=== PATIENT | female | born 1980 | race African-American/Black ===

== ENCOUNTER 2017-08-25 10:19 | Inpatient (IN) | payer SELFPAY ==
[~2017-08-25] VITALS: Ht 157.5 cm; Wt 93.4 kg
[2017-08-25] VITALS (15 sets, daily range): BP systolic 89–134; BP diastolic 47–92
[2017-08-25] MEDS ORDERED: INSU100I24 SQ (10:40)
[2017-08-25] MEDS ORDERED: PNV1TABL76 PO (10:40)
[2017-08-25] MEDS ORDERED: ONDANSETRON HCL 4MG/2ML VIAL IV STA (11:04)
[2017-08-25] MEDS ORDERED: LIDOCAINE HCL/PF 1% 2ML VIAL ONE (11:04)
[2017-08-25] MEDS ORDERED: SODIUM CHLORIDE 0.9% 1,000 ML IV ONE ×3 (11:04→13:00)
[2017-08-25 11:28] LABS: BG BASE EXCESS -20.7 mmol/L (-2.0-2.0); BG CARBOXYHEMOGLOBIN 0.2 % (0.5-1.5); BG DEOXYHEMOGLOBIN 1.6 % (0.0-5.0); BG HCO3 ACT 3.9 mmol/L (22.0-26.0); BG METHEMOGLOBIN 0.3 % (0.0-1.5); BG OXYGEN SATURATION 98.4 % (92.0-98.5); BG OXYHEMOGLOBIN 97.9 % (94.0-97.0); BG PCO2 9.6 mmHg (35.0-45.0); BG PH 7.227 (7.350-7.450); BG PO2 126.7 mmHg (75.0-100.0); BG SAMPLE SITE RIGHT RADIAL; BG TOTAL HEMOGLOBIN 13.6 g/dL (12.0-18.0); BG VENT MODE ROOM AIR
[2017-08-25 12:04] LABS: CLARITY URINE CLEAR (CLEAR); COLOR URINE YELLOW (YELLOW); KETONES URINE 4+ (NEGATIVE); LEUKOCYTE ESTERASE URINE TRACE (NEGATIVE); NITRITE URINE NEGATIVE (NEGATIVE); OCCULT BLOOD URINE TRACE (NEGATIVE); PH URINE 5.5 (4.5-8.0); PROTEIN URINE 1+ (NEGATIVE); SPECIFIC GRAVITY URINE 1.031 (1.005-1.030); UROBILINOGEN URINE 0.2 E.U./dL (0.2-1.0)
[2017-08-25 12:06] LABS: AMYLASE 58 IU/L (25-115); BETA HYDROXYBUTYRATE 6.7 mMol/L (0.0-0.3); CHLORIDE 98 mEq/L (98-107); TROPONIN I < 0.02 ng/mL (0.00-0.04)
[2017-08-25 12:08] LABS: BASOPHILS % 0.5 % (0.0-2.0); EOSINOPHILS % 0.1 % (0.0-5.0); HEMATOCRIT. 41.2 % (36.0-48.0); HEMOGLOBIN. 13.2 g/dL (12.0-16.0); LYMPHOCYTES % 13.4 % (20.0-50.0); MEAN CORPUSCULAR HEMOGLOBIN 27.2 pg (28.0-32.0); MEAN CORPUSCULAR VOLUME 84.5 fL (81.0-99.0); MONOCYTES % 5.7 % (2.0-8.0); NEUTROPHILS % 80.3 % (40.0-76.0); PLATELET 274 x1000/uL (130-400); RED BLOOD CELL COUNT 4.88 mill/uL (4.2-5.4); RED CELL DISTRIBUTION WIDTH 15.2 % (11.6-14.6)
[2017-08-25] MEDS ORDERED: INSULIN REGULAR (DRIP) 100 UNITS in SODIUM CHLORIDE 0.9% 100 ML IV ONE (12:12)
[2017-08-25] MEDS ORDERED: INSULIN REGULAR (DRIP) 100 UNITS in SODIUM CHLORIDE 0.9% 99 ML IV ONE (12:18)
[2017-08-25 12:42] LABS: PHOSPHORUS 3.5 mg/dL (2.5-4.9)
[2017-08-25] MEDS ORDERED: SODIUM CHLORIDE 0.9% 1,000 ML IV SCH (14:35)
[2017-08-25] MEDS ORDERED: CLONIDINE 0.1MG TABLET PO PRN (14:45)
[2017-08-25] MEDS ORDERED: ONDANSETRON HCL 4MG/2ML VIAL IV PRN (14:45)
[2017-08-25] MEDS ORDERED: DEXTROSE 50% WATER 50ML SYRINGE IV PRN ×2 (14:45)
[2017-08-25] MEDS ORDERED: ACETAMINOPHEN 325MG TABLET PO PRN (14:45)
[2017-08-25] MEDS: BLOOD SUGAR DIAGNOSTIC STRIP TEST SCH ×5 (15:00→23:16)
[2017-08-25] MEDS: DEXT 5%/0.9% NACL 1,000 ML IV SCH ×2 (16:00→22:17)
[2017-08-25] MEDS ORDERED: INSULIN REGULAR (DRIP) 100 UNITS in SODIUM CHLORIDE 0.9% 100 ML IV SCH (17:00)
[2017-08-25 20:24] LABS: CHLORIDE 109 mEq/L (98-107)
[2017-08-25 20:34] LABS: BETA HYDROXYBUTYRATE 3.8 mMol/L (0.0-0.3)
[2017-08-25] MEDS ORDERED: POTASSIUM CHLORIDE 20MEQ TABLET SR PO NR (21:00)
[2017-08-26] VITALS (30 sets, daily range): BP systolic 64–118; BP diastolic 23–68
[2017-08-26] MEDS: BLOOD SUGAR DIAGNOSTIC STRIP TEST SCH ×16 (00:05→20:37)
[2017-08-26] MEDS: DEXT 5%/0.9% NACL 1,000 ML IV SCH (00:56)
[2017-08-26 01:29] LABS: CHLORIDE 113 mEq/L (98-107)
[2017-08-26] MEDS ORDERED: POTASSIUM CHLORIDE 20MEQ TABLET SR PO NR ×2 (01:45→07:00)
[2017-08-26 05:58] LABS: BASOPHILS % 0.3 % (0.0-2.0); EOSINOPHILS % 1.6 % (0.0-5.0); HEMATOCRIT. 29.4 % (36.0-48.0); MEAN CORPUSCULAR VOLUME 82.5 fL (81.0-99.0); MEAN PLATELET VOLUME 9.5 fl (7.4-10.4); MONOCYTES % 9.6 % (2.0-8.0); NEUTROPHILS % 68.5 % (40.0-76.0); PLATELET 205 x1000/uL (130-400); RED BLOOD CELL COUNT 3.56 mill/uL (4.2-5.4); RED CELL DISTRIBUTION WIDTH 14.2 % (11.6-14.6)
[2017-08-26 06:20] LABS: BETA HYDROXYBUTYRATE 0.4 mMol/L (0.0-0.3); CHLORIDE 116 mEq/L (98-107)
[2017-08-26] MEDS: SODIUM CHLORIDE 0.9% 1,000 ML IV SCH ×2 (11:29→19:30)
[2017-08-26 12:55] LABS: BETA HYDROXYBUTYRATE 0.9 mMol/L (0.0-0.3); CHLORIDE 115 mEq/L (98-107)
[2017-08-26] MEDS ORDERED: SODIUM CHLORIDE 0.9% IV SCH (13:00)
[2017-08-26] MEDS ORDERED: INSULIN REGULAR IV SCH (13:00)
[2017-08-26] MEDS ORDERED: POTASSIUM CHLORIDE 20MEQ TABLET SR PO SCH (13:15)
[2017-08-26] MEDS ORDERED: DEXTROSE 50% WATER 50ML SYRINGE IV PRN (13:15)
[2017-08-26] MEDS: INSULIN GLARGINE UD 100 UNITS/ML SYR SUBCUT SCH (15:42)
[2017-08-26] MEDS: INSULIN LISPRO 100 UNITS/ML SUBCUT SCH ×2 (17:42→20:41)
[2017-08-27] MEDS: SODIUM CHLORIDE 0.9% 1,000 ML IV SCH ×3 (02:58→21:31)
[2017-08-27] MEDS: BLOOD SUGAR DIAGNOSTIC STRIP TEST SCH ×4 (07:00→21:30)
[2017-08-27 07:11] VITALS: BP 94/57
[2017-08-27 08:00] VITALS: BP 80/37
[2017-08-27] MEDS: INSULIN LISPRO 100 UNITS/ML SUBCUT SCH ×4 (08:42→21:29)
[2017-08-27] MEDS: INSULIN GLARGINE UD 100 UNITS/ML SYR SUBCUT SCH ×2 (09:12→21:30)
[2017-08-27 09:15] VITALS: BP 86/40
[2017-08-27 09:17] LABS: BASOPHILS % 0.3 % (0.0-2.0); EOSINOPHILS % 1.6 % (0.0-5.0); HEMATOCRIT. 27.7 % (36.0-48.0); HEMOGLOBIN. 9.3 g/dL (12.0-16.0); LYMPHOCYTES % 25.8 % (20.0-50.0); MEAN CORPUSCULAR HEMOGLOBIN 27.5 pg (28.0-32.0); MEAN CORPUSCULAR VOLUME 81.5 fL (81.0-99.0); MEAN PLATELET VOLUME 9.6 fl (7.4-10.4); MONOCYTES % 8.5 % (2.0-8.0); NEUTROPHILS % 63.8 % (40.0-76.0); PLATELET 167 x1000/uL (130-400); RED CELL DISTRIBUTION WIDTH 14.5 % (11.6-14.6)
[2017-08-27 09:30] LABS: CHLORIDE 109 mEq/L (98-107)
[2017-08-27 12:00] VITALS: BP 86/46
[2017-08-27 16:00] VITALS: BP 91/48
[2017-08-27] MEDS ORDERED: INSULIN GLARGINE UD 100 UNITS/ML SYR SUBCUT NR (17:00)
[2017-08-27 20:00] VITALS: BP 93/51
[2017-08-28] VITALS (7 sets, daily range): BP systolic 73–102; BP diastolic 29–61
[2017-08-28] MEDS: SODIUM CHLORIDE 0.9% 1,000 ML IV SCH ×3 (05:25→19:30)
[2017-08-28 06:45] LABS: CHLORIDE 110 mEq/L (98-107)
[2017-08-28] MEDS: BLOOD SUGAR DIAGNOSTIC STRIP TEST SCH ×4 (07:12→21:17)
[2017-08-28] MEDS: PRENATAL VIT/FE FUMARATE/FA TABLET PO SCH (09:01)
[2017-08-28] MEDS: INSULIN LISPRO 100 UNITS/ML SUBCUT SCH ×4 (09:01→21:15)
[2017-08-28] MEDS ORDERED: INSULIN GLARGINE UD 100 UNITS/ML SYR SUBCUT SCH (10:00)
[2017-08-28] MEDS: INSULIN GLARGINE UD 100 UNITS/ML SYR SUBCUT SCH ×2 (10:17→21:17)
[2017-08-28] MEDS ORDERED: SODIUM CHLORIDE 0.9% 500 ML IV ONE (12:30)
[2017-08-28] MEDS ORDERED: POTASSIUM CHLORIDE 20MEQ TABLET SR PO NR ×2 (12:30→14:30)
[2017-08-28] MEDS ORDERED: SODIUM CHLORIDE 0.9% 1,000 ML IV ONE (12:45)
[2017-08-29] VITALS: BP 100/58
[2017-08-29] MEDS: SODIUM CHLORIDE 0.9% 1,000 ML IV SCH (02:36)
[2017-08-29 04:00] VITALS: BP 98/64
[2017-08-29] MEDS: BLOOD SUGAR DIAGNOSTIC STRIP TEST SCH ×2 (07:40→12:40)
[2017-08-29 07:51] LABS: CHLORIDE 109 mEq/L (98-107)
[2017-08-29 08:00] VITALS: BP_SYST 107; BP_SYST 111; BP_DIAS 63; BP_DIAS 72
[2017-08-29] MEDS: PRENATAL VIT/FE FUMARATE/FA TABLET PO SCH (08:16)
[2017-08-29] MEDS: INSULIN LISPRO 100 UNITS/ML SUBCUT SCH (08:17)
[2017-08-29] MEDS: INSULIN GLARGINE UD 100 UNITS/ML SYR SUBCUT SCH (10:08)
[2017-08-29] MEDS ORDERED: POTASSIUM CHLORIDE 20MEQ TABLET SR PO NR (11:15)
[2017-08-29 11:28] VITALS: BP 115/70
[2017-08-29 12:00] VITALS: BP 103/65
== END 2017-08-29 12:53 | disposition home or self-care (01) | DRG 566 ==
LOC: ER 10:19 → MICUNO 12:40 → EDBEDREQ 12:44 → EDBEDREQTM 12:44 → ENRESERV 12:51 → SUPCPDRO 14:34 → MICUSO 08-26 19:00 → 7WST 08-26 22:25
PROVIDERS: ADMIT Hospitalist; ATTEND Hospitalist
DX: O99.512 Diseases of the respiratory system complicating pregnancy, second trimester (principal); E11.10 Type 2 diabetes mellitus with ketoacidosis without coma; O16.2 Unspecified maternal hypertension, second trimester; K59.00 Constipation, unspecified; O09.522 Supervision of elderly multigravida, second trimester; Z86.32 Personal history of gestational diabetes; Z3A.21 21 weeks gestation of pregnancy; Z87.891 Personal history of nicotine dependence; Z79.4 Long term (current) use of insulin; Z79.899 Other long term (current) drug therapy
CPT/HCPCS: 36415; 36600; 80048; 80053; 81001; 82010; 82150; 82375; 82805; 82962; 83036; 83690; 83735; 84100; 84484; 85025; 87804; 93005; 93970; 96361; 96365; 96366; 96375; 99291; J1815; J2405; J3490; J7030; J7042; J7050

== ENCOUNTER 2018-04-29 21:16 | Inpatient (IN) | payer MEDICAID ==
[~2018-04-29] VITALS: Ht 169.2 cm; Wt 98.2 kg
[~2018-04-29 21:16] MED LIST: INSU100I24 SQ; PNV1TABL76 PO
[2018-04-30] VITALS (26 sets, daily range): BP systolic 61–148; BP diastolic 30–95
[2018-04-30] MEDS ORDERED: SODIUM CHLORIDE 0.9% 1,000 ML IV ONE ×2 (00:03)
[2018-04-30] MEDS ORDERED: INSULIN REGULAR (HUMULIN R) 300UNITS/3ML SUBCUT ONE (00:15)
[2018-04-30 00:26] LABS: CLARITY URINE CLEAR (CLEAR); COLOR URINE YELLOW (YELLOW); KETONES URINE 4+ (NEGATIVE); LEUKOCYTE ESTERASE URINE NEGATIVE (NEGATIVE); NITRITE URINE NEGATIVE (NEGATIVE); OCCULT BLOOD URINE 1+ (NEGATIVE); PROTEIN URINE 1+ (NEGATIVE); UROBILINOGEN URINE 0.2 E.U./dL (0.2-1.0)
[2018-04-30 01:08] LABS: BASOPHILS % 1.1 % (0.0-2.0); EOSINOPHILS % 1.3 % (0.0-5.0); HEMATOCRIT. 45.3 % (36.0-48.0); HEMOGLOBIN. 14.7 g/dL (12.0-16.0); LYMPHOCYTES % 25.2 % (20.0-50.0); MEAN CORPUSCULAR HEMOGLOBIN 27.1 pg (28.0-32.0); MEAN CORPUSCULAR VOLUME 83.3 fL (81.0-99.0); MEAN PLATELET VOLUME 9.8 fl (7.4-10.4); MONOCYTES % 7.5 % (2.0-8.0); NEUTROPHILS % 64.9 % (40.0-76.0); PLATELET 312 x1000/uL (130-400); RED BLOOD CELL COUNT 5.43 mill/uL (4.2-5.4); RED CELL DISTRIBUTION WIDTH 14.2 % (11.6-14.6)
[2018-04-30 01:14] LABS: CHLORIDE 103 mEq/L (98-107)
[2018-04-30] MEDS ORDERED: INSULIN REGULAR (DRIP) 100 UNITS in SODIUM CHLORIDE 0.9% 99 ML IV STA (01:38)
[2018-04-30] MEDS ORDERED: SODIUM CHLORIDE 0.9% 1,000 ML IV SCH (02:29)
[2018-04-30] MEDS ORDERED: DEXTROSE 50% WATER 50ML SYRINGE IV PRN ×3 (04:30→04:45)
[2018-04-30] MEDS ORDERED: INSULIN REGULAR (DRIP) 100 UNITS in SODIUM CHLORIDE 0.9% 100 ML IV ONE (04:30)
[2018-04-30 04:52] LABS: BASOPHILS % 0.6 % (0.0-2.0); EOSINOPHILS % 1.4 % (0.0-5.0); HEMOGLOBIN. 13.3 g/dL (12.0-16.0); LYMPHOCYTES % 26.3 % (20.0-50.0); MEAN CORPUSCULAR HEMOGLOBIN 26.8 pg (28.0-32.0); MEAN CORPUSCULAR VOLUME 82.9 fL (81.0-99.0); MEAN PLATELET VOLUME 9.8 fl (7.4-10.4); MONOCYTES % 6.9 % (2.0-8.0); NEUTROPHILS % 64.8 % (40.0-76.0); PLATELET 291 x1000/uL (130-400); RED BLOOD CELL COUNT 4.95 mill/uL (4.2-5.4); RED CELL DISTRIBUTION WIDTH 14.2 % (11.6-14.6)
[2018-04-30 04:55] LABS: CHLORIDE 111 mEq/L (98-107)
[2018-04-30] MEDS: BLOOD SUGAR DIAGNOSTIC STRIP TEST SCH ×20 (05:12→23:56)
[2018-04-30] MEDS: SODIUM CHLORIDE 0.9% 1,000 ML IV SCH ×2 (05:18→11:10)
[2018-04-30] MEDS: INSULIN REGULAR (DRIP) 100 UNITS in SODIUM CHLORIDE 0.9% 100 ML IV SCH (05:45)
[2018-04-30] MEDS: ENOXAPARIN 30MG/0.3ML SYR SUBCUT SCH ×2 (08:57→20:16)
[2018-04-30 10:15] LABS: CHLORIDE 113 mEq/L (98-107)
[2018-04-30 16:03] LABS: CHLORIDE 113 mEq/L (98-107)
[2018-04-30] MEDS: DEXT 5%/0.9% NACL 1,000 ML IV SCH (16:15)
[2018-04-30] MEDS ORDERED: POTASSIUM CHLORIDE 20MEQ TABLET SR PO NR ×2 (17:00→22:00)
[2018-04-30 20:34] LABS: CHLORIDE 115 mEq/L (98-107)
[2018-05-01] VITALS (30 sets, daily range): BP systolic 94–151; BP diastolic 38–113
[2018-05-01] MEDS: DEXT 5%/0.9% NACL 1,000 ML IV SCH ×2 (00:51→11:48)
[2018-05-01] MEDS: INSULIN REGULAR (DRIP) 100 UNITS in SODIUM CHLORIDE 0.9% 100 ML IV SCH ×2 (00:51→14:57)
[2018-05-01] MEDS: BLOOD SUGAR DIAGNOSTIC STRIP TEST SCH ×20 (00:52→21:23)
[2018-05-01 01:07] LABS: CHLORIDE 114 mEq/L (98-107)
[2018-05-01 05:55] LABS: BASOPHILS % 0.5 % (0.0-2.0); HEMATOCRIT. 38.3 % (36.0-48.0); HEMOGLOBIN. 12.9 g/dL (12.0-16.0); LYMPHOCYTES % 35.9 % (20.0-50.0); MEAN CORPUSCULAR HEMOGLOBIN 27.2 pg (28.0-32.0); MONOCYTES % 6.2 % (2.0-8.0); NEUTROPHILS % 53.4 % (40.0-76.0); PLATELET 255 x1000/uL (130-400); RED BLOOD CELL COUNT 4.73 mill/uL (4.2-5.4)
[2018-05-01 06:03] LABS: CHLORIDE 115 mEq/L (98-107)
[2018-05-01] MEDS: ENOXAPARIN 30MG/0.3ML SYR SUBCUT SCH ×2 (09:23→21:29)
[2018-05-01] MEDS: POTASSIUM CHLORIDE 20MEQ TABLET SR PO SCH (09:23)
[2018-05-01 10:32] LABS: CHLORIDE 115 mEq/L (98-107)
[2018-05-01 10:33] LABS: BETA HYDROXYBUTYRATE 0.7 mMol/L (0.0-0.3)
[2018-05-01 13:08] LABS: CHLORIDE 111 mEq/L (98-107)
[2018-05-01] MEDS ORDERED: POTASSIUM CHLORIDE 20MEQ TABLET SR PO NR (14:00)
[2018-05-01] MEDS: SODIUM CHLORIDE 0.9% 1,000 ML IV SCH (14:32)
[2018-05-01] MEDS ORDERED: INSULIN GLARGINE UD 100 UNITS/ML SYR SUBCUT NR (15:00)
[2018-05-01 17:13] LABS: CHLORIDE 113 mEq/L (98-107)
[2018-05-01] MEDS ORDERED: DEXTROSE 50% WATER 50ML SYRINGE IV PRN (19:00)
[2018-05-01] MEDS: INSULIN LISPRO 100 UNITS/ML SUBCUT SCH (21:22)
[2018-05-02] VITALS (13 sets, daily range): BP systolic 100–143; BP diastolic 42–86
[2018-05-02] MEDS: SODIUM CHLORIDE 0.9% 1,000 ML IV SCH ×2 (01:03→09:51)
[2018-05-02 05:58] LABS: BASOPHILS % 0.7 % (0.0-2.0); EOSINOPHILS % 3.7 % (0.0-5.0); HEMATOCRIT. 35.1 % (36.0-48.0); HEMOGLOBIN. 11.7 g/dL (12.0-16.0); LYMPHOCYTES % 55.9 % (20.0-50.0); MEAN CORPUSCULAR VOLUME 80.9 fL (81.0-99.0); MEAN PLATELET VOLUME 9.9 fl (7.4-10.4); MONOCYTES % 6.1 % (2.0-8.0); NEUTROPHILS % 33.6 % (40.0-76.0); PLATELET 220 x1000/uL (130-400); RED BLOOD CELL COUNT 4.34 mill/uL (4.2-5.4); RED CELL DISTRIBUTION WIDTH 14.1 % (11.6-14.6)
[2018-05-02 06:19] LABS: CHLORIDE 112 mEq/L (98-107)
[2018-05-02 06:27] LABS: PHOSPHORUS 1.7 mg/dL (2.5-4.9)
[2018-05-02] MEDS: BLOOD SUGAR DIAGNOSTIC STRIP TEST SCH ×3 (07:25→18:00)
[2018-05-02] MEDS: POTASSIUM CHLORIDE 20MEQ TABLET SR PO SCH (07:42)
[2018-05-02] MEDS: INSULIN LISPRO 100 UNITS/ML SUBCUT SCH ×3 (07:43→18:05)
[2018-05-02] MEDS: ENOXAPARIN 30MG/0.3ML SYR SUBCUT SCH (09:51)
[2018-05-02] MEDS ORDERED: MAGNESIUM 2 G PREMIX 50 ML IV ONE (10:15)
[2018-05-02] MEDS ORDERED: MAGNESIUM SULFATE 2 GM in DEXTROSE 5% WATER 50 ML IV NR (11:00)
[2018-05-02] MEDS ORDERED: POTASSIUM PHOS,M-BASIC-D-BASIC 20 MMOL in DEXT 5% WATER 243.3333 ML IV NR (11:00)
== END 2018-05-02 19:50 | disposition home or self-care (01) | DRG 420 ==
LOC: ER 21:16 → CVICU 04-30 02:31 → EDBEDREQTM 04-30 02:34 → EDBEDREQ 04-30 02:34 → ENRESERV 04-30 02:54 → 8WST 05-02 08:07
PROVIDERS: ADMIT Internal Medicine Nephrology; ATTEND Internal Medicine Nephrology
DX: E11.10 Type 2 diabetes mellitus with ketoacidosis without coma (principal); E66.01 Morbid (severe) obesity due to excess calories; E83.39 Other disorders of phosphorus metabolism; D72.829 Elevated white blood cell count, unspecified; E83.42 Hypomagnesemia; R74.0 Nonspecific elevation of levels of transaminase and lactic acid dehydrogenase [LDH]; E87.1 Hypo-osmolality and hyponatremia; E87.6 Hypokalemia; F17.200 Nicotine dependence, unspecified, uncomplicated; I10 Essential (primary) hypertension; Z86.32 Personal history of gestational diabetes; Z98.891 History of uterine scar from previous surgery; Z68.34 Body mass index [BMI] 34.0-34.9, adult
CPT/HCPCS: 36415; 71045; 76700; 80048; 81025; 82010; 82962; 83036; 83735; 84100; 93005; 96361; 96365; 96375; 99291; J1650; J1815; J3475; J3490; J7030; J7042; J7050; J7060

== ENCOUNTER 2021-12-08 15:23 | Emergency (ER) | payer MEDICAID ==
[~2021-12-08] VITALS: Ht 160 cm; Wt 86.0 kg
[2021-12-08 16:15] LABS: BASOPHILS % 0.6 % (0.0-2.0); EOSINOPHILS % 1.5 % (0.0-5.0); HEMATOCRIT. 32.7 % (36.0-48.0); HEMOGLOBIN. 10.5 g/dL (12.0-16.0); LYMPHOCYTES % 24.9 % (20.0-50.0); MEAN CORPUSCULAR HEMOGLOBIN 24.9 pg (28.0-32.0); MEAN CORPUSCULAR VOLUME 77.2 fL (81.0-99.0); MEAN PLATELET VOLUME 9.3 fl (7.4-10.4); MONOCYTES % 5.1 % (2.0-8.0); NEUTROPHILS % 67.9 % (40.0-76.0); PLATELET 272 x1000/uL (130-400); RED BLOOD CELL COUNT 4.23 mill/uL (4.2-5.4); RED CELL DISTRIBUTION WIDTH 13.8 % (11.6-14.6)
[2021-12-08 16:19] LABS: CHLORIDE 105 mEq/L (98-107)
[2021-12-08 16:21] VITALS: BP 121/70
[2021-12-08 16:27] LABS: BETA HYDROXYBUTYRATE 0.1 mMol/L (0.0-0.3)
[2021-12-08 16:57] LABS: CLARITY URINE CLOUDY (CLEAR); COLOR URINE YELLOW (YELLOW); KETONES URINE TRACE (NEGATIVE); LEUKOCYTE ESTERASE URINE 2+ (NEGATIVE); NITRITE URINE POSITIVE (NEGATIVE); OCCULT BLOOD URINE TRACE (NEGATIVE); PROTEIN URINE TRACE (NEGATIVE); SPECIFIC GRAVITY URINE 1.023 (1.005-1.030)
[2021-12-08] MEDS ORDERED: CEPH500T MT (17:24)
[2021-12-08] MEDS ORDERED: METR500T MT (17:24)
[2021-12-08] MEDS ORDERED: INSU100I32 SQ (17:24)
== END 2021-12-08 18:03 | disposition home or self-care (01) ==
LOC: ER 15:23
DX: E11.65 Type 2 diabetes mellitus with hyperglycemia (principal); N39.0 Urinary tract infection, site not specified; I10 Essential (primary) hypertension; Z98.890 Other specified postprocedural states; A59.9 Trichomoniasis, unspecified; Z76.0 Encounter for issue of repeat prescription
CPT/HCPCS: 36415; 80053; 81003; 81025; 82010; 82962; 85025; 99283

== ENCOUNTER 2022-12-08 14:07 | Emergency (ER) | payer MEDICAID ==
[~2022-12-08] VITALS: Ht 160 cm; Wt 84.0 kg
[~2022-12-08 14:07] MED LIST changes: +CEPH500T MT; -INSU100I24 SQ; +INSU100I32 SQ; +METR500T MT; -PNV1TABL76 PO
[2022-12-08 14:52] LABS: BASOPHILS % 0.5 % (0.0-2.0); LYMPHOCYTES % 25.2 % (20.0-50.0); MEAN CORPUSCULAR HEMOGLOBIN 24.9 pg (28.0-32.0); MEAN CORPUSCULAR VOLUME 78.8 fL (81.0-99.0); MEAN PLATELET VOLUME 9.9 fl (7.4-10.4); MONOCYTES % 5.2 % (2.0-8.0); NEUTROPHILS % 68.1 % (40.0-76.0); PLATELET 438 x1000/uL (130-400); RED BLOOD CELL COUNT 4.82 mill/uL (4.2-5.4); RED CELL DISTRIBUTION WIDTH 13.9 % (11.6-14.6)
[2022-12-08 14:53] LABS: CHLORIDE 102 mEq/L (98-107)
[2022-12-08 15:57] LABS: CLARITY URINE CLOUDY (CLEAR); COLOR URINE YELLOW (YELLOW); KETONES URINE 4+ (NEGATIVE); LEUKOCYTE ESTERASE URINE 1+ (NEGATIVE); NITRITE URINE NEGATIVE (NEGATIVE); OCCULT BLOOD URINE 1+ (NEGATIVE); PH URINE 5.5 (4.5-8.0); PROTEIN URINE TRACE (NEGATIVE); SPECIFIC GRAVITY URINE 1.039 (1.005-1.030); UROBILINOGEN URINE 0.2 E.U./dL (0.2-1.0)
[2022-12-08] MEDS ORDERED: SODIUM CHLORIDE 0.9% 1,000 ML IV ONE ×2 (16:00→18:30)
[2022-12-08] MEDS ORDERED: ASPIRIN 81MG TABLET PO ONE (16:00)
[2022-12-08 16:28] LABS: BETA HYDROXYBUTYRATE 4.3 mMol/L (0.0-0.3)
[2022-12-08] MEDS ORDERED: CEFTRIAXONE 1GM PREMIX 50 ML IV ONE (16:45)
[2022-12-08] MEDS ORDERED: INSULIN REGULAR (HUMULIN R) UD 100 UNITS/ML SYR SUBCUT ONE (18:30)
[2022-12-08] MEDS ORDERED: INSULIN REGULAR (HUMULIN R) 300UNITS/3ML VIAL SUBCUT NR (18:30)
[2022-12-08] MEDS ORDERED: CEPH500C2 MT (20:40)
[2022-12-08] MEDS ORDERED: INSHUMSS SUBCUT (20:40)
[2022-12-08] MEDS ORDERED: INSU100I28 SQ (20:40)
[2022-12-08 21:35] VITALS: BP 120/75
== END 2022-12-08 22:10 | disposition home or self-care (01) ==
LOC: ER 14:07
DX: E11.65 Type 2 diabetes mellitus with hyperglycemia (principal); N39.0 Urinary tract infection, site not specified; R06.02 Shortness of breath; I10 Essential (primary) hypertension; Z91.013 Allergy to seafood; Z79.4 Long term (current) use of insulin
CPT/HCPCS: 36415; 71045; 80053; 81003; 81025; 82010; 82962; 83880; 84484; 85025; 85379; 93005; 96361; 96372; 96374; 99285; J0696; J1815; J7030; Z7610

== ENCOUNTER 2025-01-12 11:50 | Inpatient (IN) | payer MEDICAID ==
[~2025-01-12] VITALS: Ht 167.6 cm; Wt 73.9 kg
[2025-01-12] VITALS (26 sets, daily range): BP systolic 81–138; BP diastolic 38–120; PULSE 81–102; RESP 16–21; TEMP 36.4–36.7; O2SAT 99–100
[~2025-01-12 11:50] MED LIST changes: +CEPH500C2 MT; +INSHUMSS SUBCUT; +INSU100I28 SQ
[2025-01-12] MEDS: SODIUM CHLORIDE 0.9% 1,000 ML IV ONE ×2 (12:48→14:15)
[2025-01-12 12:53] LABS: BASOPHILS % 0.6 % (0.0-2.0); EOSINOPHILS % 0.2 % (0.0-5.0); HEMATOCRIT. 46.2 % (36.0-48.0); HEMOGLOBIN. 13.8 g/dL (12.0-16.0); LYMPHOCYTES % 25.0 % (20.0-50.0); MEAN PLATELET VOLUME 9.9 fl (7.4-10.4); MONOCYTES % 7.0 % (2.0-8.0); NEUTROPHILS % 67.2 % (40.0-76.0); PLATELET 334 x1000/uL (130-400); RED BLOOD CELL COUNT 5.77 mill/uL (4.2-5.4); RED CELL DISTRIBUTION WIDTH 16.0 % (11.6-14.6)
[2025-01-12 13:11] LABS: CREATININE 1.1 mg/dL (0.6-1.0)
[2025-01-12 13:12] LABS: UREA NITROGEN BLOOD 6 mg/dL (9-23)
[2025-01-12 13:14] LABS: ASPARTATE AMINOTRANSFERASE 9 IU/L (<34); BILIRUBIN DIRECT 0.2 mg/dL (<=3.0); BILIRUBIN TOTAL 0.6 mg/dL (0.1-1.0); PROTEIN TOTAL 8.3 g/dL (6.0-8.3)
[2025-01-12 13:20] LABS: HCG SCREEN NEGATIVE
[2025-01-12 13:24] LABS: BG BASE EXCESS -19.9 mmol/L (-2.0-3.0); BG CARBOXYHEMOGLOBIN 0.6 % (0.5-1.5); BG DEOXYHEMOGLOBIN 1.5 % (0.0-5.0); BG FRACTION INSPIRED OXYGEN 21; BG HCO3 ACT 4.4 mmol/L (21.0-28.0); BG METHEMOGLOBIN 0.3 % (0.5-1.5); BG OXYGEN SATURATION 98.5 % (94.0-98.0); BG OXYHEMOGLOBIN 97.6 % (94.0-98.0); BG PCO2 10.6 mmHg (32.0-45.0); BG PH 7.239 (7.350-7.450); BG PO2 132.8 mmHg (83.0-108.0); BG SAMPLE SITE RIGHT RADIAL; BG TOTAL HEMOGLOBIN 14.2 g/dL (12.0-16.0); BG VENT MODE ROOM AIR
[2025-01-12] MEDS ORDERED: KCL 20MEQ/100ML PREMIX 100 ML IV PRN (13:45)
[2025-01-12] MEDS ORDERED: DEXT 5%/0.9% NACL 1,000 ML IV SCH (13:45)
[2025-01-12] MEDS ORDERED: INSULIN REGULAR (DRIP) 100 UNITS in SODIUM CHLORIDE 0.9% 99 ML IV SCH ×2 (13:45→15:15)
[2025-01-12] MEDS ORDERED: BLOOD SUGAR DIAGNOSTIC STRIP TEST PRN ×2 (13:45→15:15)
[2025-01-12] MEDS ORDERED: MAGNESIUM 2 G PREMIX 50 ML IV PRN (13:45)
[2025-01-12] MEDS ORDERED: POTASSIUM CHLORIDE 40 MEQ in SODIUM CHLORIDE 0.9% 230 ML IV PRN (13:45)
[2025-01-12] MEDS ORDERED: SODIUM PHOSPHATE 15 MMOL in SODIUM CHLORIDE 0.9% 245 ML IV PRN (13:45)
[2025-01-12] MEDS ORDERED: DEXTROSE 50% WATER 50ML SYRINGE IV PRN ×2 (13:45→15:15)
[2025-01-12] MEDS: BLOOD SUGAR DIAGNOSTIC STRIP TEST SCH ×2 (14:15→15:15)
[2025-01-12] MEDS: INSULIN REGULAR 100U/100ML PMX 100 ML IV SCH (14:15)
[2025-01-12] MEDS: SODIUM CHLORIDE 0.9% 1,000 ML IV SCH ×2 (14:15→16:43)
[2025-01-12] MEDS ORDERED: ACETAMINOPHEN 325MG TABLET PO PRN (15:15)
[2025-01-12] MEDS ORDERED: HYDROCODONE/ACETAMINOPHEN 5/325MG TABLET PO PRN (15:15)
[2025-01-12] MEDS ORDERED: IPRATROPIUM/ALBUTEROL 0.5-3(2.5)MG/3ML NEB NEB PRN (15:15)
[2025-01-12] MEDS ORDERED: MAGNESIUM/ALUMINUM HYDROXIDE/SIMETHICONE 30ML UDC PO PRN (15:15)
[2025-01-12] MEDS ORDERED: ONDANSETRON HCL 4MG/2ML INJ IV PRN (15:15)
[2025-01-12 15:26] LABS: GLUCOSE URINE 3+ (NEGATIVE); PH URINE 5.5 (4.5-8.0); PROTEIN URINE 2+ (NEGATIVE); SPECIFIC GRAVITY URINE 1.029 (1.005-1.030)
[2025-01-12 15:27] LABS: KETONES URINE 4+ (NEGATIVE); LEUKOCYTE ESTERASE URINE NEGATIVE (NEGATIVE); NITRITE URINE NEGATIVE (NEGATIVE); OCCULT BLOOD URINE 1+ (NEGATIVE); UROBILINOGEN URINE 0.2 E.U./dL (0.2-1.0)
[2025-01-12] MEDS ORDERED: NALOXONE HCL 0.4MG/ML VIAL IV PRN (15:30)
[2025-01-12 15:55] LABS: CLARITY URINE SL HAZY (CLEAR); COLOR URINE STRAW (YELLOW)
[2025-01-12 15:58] LABS: BACTERIA URINE NONE SEEN; SQUAMOUS EPITHELIAL CELL URINE 2+ /lpf (RARE/1+); YEAST URINE 3+
[2025-01-12 15:59] LABS: MUCUS URINE TRACE /lpf (< = 2+)
[2025-01-12] MEDS: MORPHINE SULFATE 2 MG/ML INJ (NOT FOR IM USE) IV PRN (15:59)
[2025-01-12 16:01] LABS: RBC URINE NONE SEEN /hpf (0-2); WBC URINE 0-2 /hpf (0-2)
[2025-01-12] MEDS: SODIUM BICARBONATE 8.4% 50MEQ/50ML SYR IV SCH (16:43)
[2025-01-12 17:37] LABS: INR 1.2
[2025-01-12 17:41] LABS: PHOSPHORUS 1.2 mg/dL (2.5-4.9)
[2025-01-12] MEDS: KCL 20MEQ/100ML PREMIX 100 ML IV PRN (18:14)
[2025-01-12] MEDS: DEXT 5%/0.9% NACL 1,000 ML IV SCH (18:34)
[2025-01-12] MEDS: PANTOPRAZOLE SODIUM 40 MG/VIAL IV SCH (18:34)
[2025-01-12] MEDS: ENOXAPARIN 40MG/0.4ML SYR SUBCUT SCH (18:35)
[2025-01-12] MEDS ORDERED: INFLUENZA VACCINE 05/PF 0.5 ML SYRINGE IM ONE (19:00)
[2025-01-12] MEDS ORDERED: PNEUMOCOCCAL 20-VAL CONJ-DIP CRM 0.5ML IM ONE (19:00)
[2025-01-12 19:31] LABS: *AMPHETAMINES SCREEN URINE PRESUMPTIVE POSITIVE (NEGATIVE); *BARBITURATES SCREEN URINE NEGATIVE (NEGATIVE); *BENZODIAZEPINES SCREEN URINE NEGATIVE (NEGATIVE); *COCAINE SCREEN URINE NEGATIVE (NEGATIVE)
[2025-01-12 19:32] LABS: CANNABINOID URINE SCREEN NEGATIVE (NEGATIVE); ECSTASY MDMA SCREEN URINE NEGATIVE (NEGATIVE); METHADONE URINE SCREEN NEGATIVE (NEGATIVE); OPIATES URINE SCREEN PRESUMPTIVE POSITIVE (NEGATIVE); PHENCYCLIDINE URINE SCREEN NEGATIVE (NEGATIVE)
[2025-01-12 20:05] LABS: PLATELET 239 x1000/uL (130-400); RED BLOOD CELL COUNT 4.72 mill/uL (4.2-5.4); RED CELL DISTRIBUTION WIDTH 15.3 % (11.6-14.6)
[2025-01-12 20:18] LABS: CREATININE 0.7 mg/dL (0.6-1.0); UREA NITROGEN BLOOD < 5 mg/dL (9-23)
[2025-01-12 20:34] LABS: PHOSPHORUS 0.9 mg/dL (2.5-4.9)
[2025-01-12 20:35] LABS: BG BASE EXCESS -15.0 mmol/L (-2.0-3.0); BG CARBOXYHEMOGLOBIN 0.3 % (0.5-1.5); BG DEOXYHEMOGLOBIN 1.8 % (0.0-5.0); BG FRACTION INSPIRED OXYGEN 21; BG HCO3 ACT 9.3 mmol/L (21.0-28.0); BG METHEMOGLOBIN 0.3 % (0.5-1.5); BG OXYGEN SATURATION 98.2 % (94.0-98.0); BG OXYHEMOGLOBIN 97.6 % (94.0-98.0); BG PCO2 19.7 mmHg (32.0-45.0); BG PH 7.294 (7.350-7.450); BG PO2 110.9 mmHg (83.0-108.0); BG SAMPLE SITE RIGHT RADIAL; BG TOTAL HEMOGLOBIN 12.3 g/dL (12.0-16.0); BG VENT MODE ROOM AIR
[2025-01-12] MEDS: MAGNESIUM 2 G PREMIX 50 ML IV PRN (20:52)
[2025-01-12 20:57] LABS: HEPATITIS C AB NON REACTIVE (Neg) (Negative)
[2025-01-12] MEDS: SODIUM PHOSPHATE 15 MMOL in SODIUM CHLORIDE 0.9% 245 ML IV PRN (21:12)
[2025-01-13] VITALS (63 sets, daily range): BP systolic 90–129; BP diastolic 51–109; PULSE 75–94; RESP 14–22; TEMP 36.1–36.9; O2SAT 95–100
[2025-01-13 00:22] LABS: PHOSPHORUS 1.7 mg/dL (2.5-4.9)
[2025-01-13 05:46] LABS: BASOPHILS % 0.5 % (0.0-2.0); EOSINOPHILS % 0.7 % (0.0-5.0); HEMATOCRIT. 37.0 % (36.0-48.0); HEMOGLOBIN. 11.6 g/dL (12.0-16.0); LYMPHOCYTES % 29.3 % (20.0-50.0); MEAN PLATELET VOLUME 9.6 fl (7.4-10.4); MONOCYTES % 9.0 % (2.0-8.0); NEUTROPHILS % 60.5 % (40.0-76.0); PLATELET 291 x1000/uL (130-400); RED BLOOD CELL COUNT 4.82 mill/uL (4.2-5.4); RED CELL DISTRIBUTION WIDTH 15.9 % (11.6-14.6)
[2025-01-13 06:01] LABS: CREATININE 0.6 mg/dL (0.6-1.0)
[2025-01-13 06:02] LABS: UREA NITROGEN BLOOD < 5 mg/dL (9-23)
[2025-01-13] MEDS: POTASSIUM CHLORIDE 40 MEQ in SODIUM CHLORIDE 0.9% 230 ML IV PRN (06:17)
[2025-01-13 06:58] LABS: PHOSPHORUS 0.8 mg/dL (2.5-4.9)
[2025-01-13 08:36] LABS: BG BASE EXCESS -12.3 mmol/L (-2.0-3.0); BG CARBOXYHEMOGLOBIN 1.1 % (0.5-1.5); BG DEOXYHEMOGLOBIN 1.7 % (0.0-5.0); BG FRACTION INSPIRED OXYGEN 21; BG HCO3 ACT 11.6 mmol/L (21.0-28.0); BG METHEMOGLOBIN 0.3 % (0.5-1.5); BG OXYGEN SATURATION 98.3 % (94.0-98.0); BG OXYHEMOGLOBIN 96.9 % (94.0-98.0); BG PCO2 21.8 mmHg (32.0-45.0); BG PH 7.343 (7.350-7.450); BG PO2 109.5 mmHg (83.0-108.0); BG SAMPLE SITE RIGHT RADIAL; BG TOTAL HEMOGLOBIN 11.2 g/dL (12.0-16.0); BG VENT MODE ROOM AIR
[2025-01-13 10:29] LABS: CREATININE 0.6 mg/dL (0.6-1.0); UREA NITROGEN BLOOD < 5 mg/dL (9-23)
[2025-01-13 10:31] LABS: PHOSPHORUS 1.6 mg/dL (2.5-4.9)
[2025-01-13 18:03] LABS: CREATININE 0.5 mg/dL (0.6-1.0); UREA NITROGEN BLOOD < 5 mg/dL (9-23)
[2025-01-13 18:15] LABS: PHOSPHORUS 0.4 mg/dL (2.5-4.9)
[2025-01-13] MEDS: MAGNESIUM 2 G PREMIX 50 ML IV SCH (18:31)
[2025-01-13] MEDS: SODIUM PHOSPHATE 15 MMOL in DEXT 5% WATER 245 ML IV SCH (18:57)
[2025-01-13 23:16] LABS: CREATININE 0.6 mg/dL (0.6-1.0); UREA NITROGEN BLOOD < 5 mg/dL (9-23)
[2025-01-13 23:18] LABS: PHOSPHORUS 1.7 mg/dL (2.5-4.9)
[2025-01-14] VITALS (39 sets, daily range): BP systolic 92–127; BP diastolic 53–105; PULSE 74–97; RESP 13–25; TEMP 36.1–37; O2SAT 93–100
[2025-01-14 02:25] LABS: CREATININE 0.6 mg/dL (0.6-1.0); UREA NITROGEN BLOOD < 5 mg/dL (9-23)
[2025-01-14 02:27] LABS: PHOSPHORUS 1.3 mg/dL (2.5-4.9)
[2025-01-14] MEDS: POTASSIUM PHOSPHATE 20 MMOL in DEXT 5% WATER 243.3333 ML IV NR (03:36)
[2025-01-14] MEDS: INSULIN REGULAR 100U/100ML PMX 100 ML IV SCH (05:31)
[2025-01-14 06:32] LABS: BASOPHILS % 0.6 % (0.0-2.0); EOSINOPHILS % 1.5 % (0.0-5.0); HEMATOCRIT. 31.2 % (36.0-48.0); HEMOGLOBIN. 10.1 g/dL (12.0-16.0); LYMPHOCYTES % 25.4 % (20.0-50.0); MEAN PLATELET VOLUME 9.1 fl (7.4-10.4); MONOCYTES % 8.3 % (2.0-8.0); NEUTROPHILS % 64.2 % (40.0-76.0); PLATELET 195 x1000/uL (130-400); RED BLOOD CELL COUNT 4.17 mill/uL (4.2-5.4); RED CELL DISTRIBUTION WIDTH 15.4 % (11.6-14.6)
[2025-01-14 06:48] LABS: CREATININE 0.5 mg/dL (0.6-1.0)
[2025-01-14 06:49] LABS: UREA NITROGEN BLOOD < 5 mg/dL (9-23)
[2025-01-14 08:36] LABS: PHOSPHORUS 1.8 mg/dL (2.5-4.9)
[2025-01-14] MEDS: MAGNESIUM 2 G PREMIX 50 ML IV SCH (09:19)
[2025-01-14] MEDS: SODIUM PHOSPHATE 15 MMOL in DEXT 5% WATER 245 ML IV NR (09:24)
[2025-01-14] MEDS ORDERED: DEXTROSE 50% WATER 50ML SYRINGE IV PRN (13:45)
[2025-01-14] MEDS: INSULIN GLARGINE 100 UNITS/ML SUBCUT SCH (14:03)
[2025-01-14] MEDS: MAGNESIUM 4 G PREMIX 100 ML IV NR (14:03)
[2025-01-14] MEDS: POTASSIUM PHOSPHATE 30 MMOL in DEXT 5% WATER 490 ML IV NR (14:49)
[2025-01-14] MEDS: BLOOD SUGAR DIAGNOSTIC STRIP TEST SCH (16:43)
[2025-01-14] MEDS: INSULIN LISPRO 100 UNITS/ML SUBCUT SCH (17:10)
[2025-01-14] MEDS: DIPHENHYDRAMINE 50MG/ML VIAL IV PRN (20:05)
[2025-01-15 08:00] VITALS: BP 90/45; PULSE 89; RESP 17; TEMP 36.4; O2SAT 99
[2025-01-15] MEDS: INSULIN GLARGINE 100 UNITS/ML SUBCUT SCH (10:50)
[2025-01-15 11:04] LABS: CREATININE 0.6 mg/dL (0.6-1.0)
[2025-01-15 11:05] LABS: UREA NITROGEN BLOOD < 5 mg/dL (9-23)
[2025-01-15 11:08] LABS: PHOSPHORUS 2.6 mg/dL (2.5-4.9)
[2025-01-15 12:00] VITALS: BP 103/57; PULSE 93; RESP 17; TEMP 36.3; O2SAT 99
[2025-01-15] MEDS ORDERED: INSU100I28 SQ (13:26)
[2025-01-15] MEDS ORDERED: INSU100I32 SQ (13:26)
[2025-01-15 16:16] VITALS: BP 112/72; PULSE 90; TEMP 97.9; O2SAT 100
== END 2025-01-15 17:07 | disposition home or self-care (01) | DRG 420 ==
LOC: ER 11:50 → EDBEDREQ 15:14 → EDBEDREQTM 15:14 → MICUNO 17:23 → MICUSO 01-13 13:06 → 7EST 01-14 20:40
PROVIDERS: ADMIT Internal Medicine; ATTEND Internal Medicine
DX: E11.10 Type 2 diabetes mellitus with ketoacidosis without coma (principal); E87.1 Hypo-osmolality and hyponatremia; D72.829 Elevated white blood cell count, unspecified; F19.10 Other psychoactive substance abuse, uncomplicated; I10 Essential (primary) hypertension; Z98.891 History of uterine scar from previous surgery
CPT/HCPCS: 36415; 36600; 80048; 80051; 80076; 80305; 81003; 82010; 82375; 82805; 82962; 83036; 83735; 83930; 84100; 84703; 85025; 85027; 86705; 87340; 93970; 99285; A4606; J1200; J1650; J1815; J2270; J2470; J3475; J3480; J3490; J7030; J7042; J7050; J7060